=== PATIENT | male | born 2000 | race Hispanic/Latino ===

== ENCOUNTER 2022-07-28 01:20 | Emergency (ER) | payer BC ==
[~2022-07-28] VITALS: Ht 167.6 cm; Wt 65.3 kg
[~2022-07-28 01:20] MED LIST: OMEP40CA21 PO
[2022-07-28] MEDS ORDERED: OMEP40CA21 PO (04:00)
== END 2022-07-28 04:07 | disposition home or self-care (01) ==
LOC: EDH 01:20
DX: R10.9 Unspecified abdominal pain (principal); R11.0 Nausea
CPT/HCPCS: 99282